=== PATIENT | male | born 1960 | race Two or more races ===

== ENCOUNTER 2024-09-28 05:59 | Emergency (ER) | payer OTHER ==
[~2024-09-28] VITALS: Ht 175.3 cm; Wt 63.5 kg
[2024-09-28 06:19] VITALS: BP 149/78; O2SAT 97
[2024-09-28] MEDS ORDERED: HYOSCYAMINE SULFATE 0.125 MG TAB.SUBL SL STA (07:21)
[2024-09-28] MEDS ORDERED: PROMETHAZINE HCL 50 MG/ML AMPUL IM STA (07:22)
[2024-09-28] MEDS ORDERED: FAMOTIDINE/PF 20 MG/2 ML VIAL IV PUSH STA (07:23)
[2024-09-28] MEDS ORDERED: LACTOBACILLUS ACIDOPHILUS 1 CAP CAP PO STA (07:24)
[2024-09-28] MEDS ORDERED: 0.9 % SODIUM CHLORIDE 1,000 ML IV ONE (07:30)
[2024-09-28 08:35] LABS: HEMATOCRIT 40.3 % (39.0-48.0); HEMOGLOBIN 14.4 g/dL (13-16.00); MEAN CORPUSCULAR HEMOGLOBIN 31.7 pg (27.00-32.0); MEAN CORPUSCULAR HGB CONC 35.6 g/dl (32.0-36.0); RED BLOOD COUNT 4.53 M/uL (4.00-6.00); RED CELL DISTRIBUTION WIDTH 14.6 % (11.5-14.5)
[2024-09-28 08:39] LABS: PLATELET COUNT 120 K/uL (150-450)
[2024-09-28 08:55] LABS: CALCIUM 8.9 mg/dL (8.5-10.1); CREATININE SERUM 1.04 mg/dL (0.70-1.30); GFR 71.9; POTASSIUM 3.55 mEq/L (3.5-5.1)
[2024-09-28 09:57] LABS: PH,URINE 7.5 (5.0-8.0); URINE APPEARANCE Clear; URINE BILIRRUBIN Negative (NEGATIVE); URINE BLOOD Negative; URINE COLOR Yellow; URINE GLUCOSE Negative (NEGATIVE); URINE KETONE Negative (NEGATIVE); URINE LEUKOCYTE Negative; URINE NITRATE Negative; URINE PROTEIN Negative (NEGATIVE); URINE UROBILINOGEN 0.2 E.U./dl
[2024-09-28 09:58] LABS: URINE BACTERIA 17.6 uL (0.0-1933); URINE EPITHELIAL CELLS 8.3 uL (0.0-38.8)
[2024-09-28 10:21] LABS: URINE RBC 0.6 uL (0.0-20.8)
== END 2024-09-28 17:24 | disposition home or self-care (01) ==
LOC: ER 06:01
PROVIDERS: General Practice
DX: R11.10 Vomiting, unspecified (principal); R19.7 Diarrhea, unspecified